=== PATIENT | female | born 1955 | race Caucasian/White ===

== ENCOUNTER 2018-04-11 14:32 | Emergency (ER) | payer OTHER ==
[~2018-04-11] VITALS: Ht 152.4 cm; Wt 77.1 kg
[2018-04-11] MEDS ORDERED: HYZAAR 100-251 EACH (15:22)
[2018-04-11] MEDS ORDERED: ZOCOR40 MG (15:22)
[2018-04-11] MEDS ORDERED: PROMETHAZINE W473 ML PO (21:45)
== END 2018-04-11 22:10 | disposition home or self-care (01) ==
LOC: ER 14:32
DX: J40 Bronchitis, not specified as acute or chronic (principal)